=== PATIENT | male | born 1995 | race Caucasian/White ===

== ENCOUNTER 2019-07-16 14:42 | Emergency (ER) | payer OTHER ==
[2019-07-16] MEDS ORDERED: HYDROcodone 5MG/APAP 325MG 1 EA TAB PO ONE (14:55)
[2019-07-16] MEDS ORDERED: IBUPROFEN 200 MG TAB PO ONE (14:55)
--- NOTE | 2019-07-16 14:59 | ED.PDOC ---
History of Present Illness - General Chief Complaint: Upper Extremity Injury Stated Complaint: R arm injury Time Seen by Provider: 07/16/19 14:50 - History of Present Illness Initial Comments: 24 y.o. M w/ no sig pmh presents c/o R arm pain. Says he was playing softball when he attempted to throw the ball when he felt and heard a loud snap. C/o pain around his mid humerus. Pain is made worse with arm flexion. Denies any numbness or weakness of his hand. no other injury. Allergies/Adverse Reactions: Allergies NO KNOWN ALLERGY Allergy (Verified 07/16/19 14:52) Home Medications: Ambulatory Orders Hydrocodone-Acetaminophen [[place] 5-325 mg] 1 tab PO Q6HR PRN #15 tab 07/16/19 Ibuprofen 600 mg PO Q6HR PRN #20 tab 07/16/19 Review of Systems - Review of Systems Constitutional: States: no symptoms reported EENTM: States: no symptoms reported Respiratory: States: no symptoms reported Cardiology: States: no symptoms reported Gastrointestinal/Abdominal: States: no symptoms reported Genitourinary: States: no symptoms reported Musculoskeletal: States: joint pain, muscle pain Skin: States: no symptoms reported Neurological: States: no symptoms reported Endocrine: States: no symptoms reported Hematologic/Lymphatic: States: no symptoms reported All other Systems: Reviewed and Negative Family Medical History - Family History Father Family History: No Known Living Status: Still Living Physical Exam - Physical Exam General Appearance: Alert, Comfortable Eyes, Ears, Nose, Throat Exam: normal ENT inspection, pharynx normal Neck: non-tender, full range of motion Cardiovascular/Respiratory: regular rate, rhythm, no M/R/G Abdominal Exam: non-tender Back Exam: normal inspection Shoulder Exam: normal inspection, normal ROM - tenderness and swelling of mid humerus with tenderness of bicep. Neuro/Tendon: normal sensation, other - 2+ radial pulses Mental Status: alert, oriented x 3 Skin Exam: normal color, warm/dry Progress - Progress Progress: 07/16/19 15:06 MDM patient presenting with R upper arm pain after throwing softball. ? bicep tear. Plan: XR, treat pain, reassess. Diff dx: fracture, sprain/strain 07/16/19 16:[address] Lundberg, ortho, regarding XR. He reviewed films and recommended coa ptation splint, and will have patient f/u in his office on Thursday. 07/16/19 16:36 Patient reports he is going to [place] tomorrow, as he is a student at [employer]. He says his family in the area will find an orthopedic surgeon for him to f/u with. - EKG/XRAY/CT Xray Comments: XR of humerus with comminuted and displaced humerus fx Procedures - Splinting Right Arm Hand-Made Type: orthoglass Splint: Coaptation Pre-Proc Neuro Vasc Exam: normal Post-Proc Neuro Vasc Exam: normal Departure - Departure Clinical Impression: Comminuted fracture of humerus Qualifiers: Encounter type: initial encounter Humerus Location: shaft Fracture type: closed Fracture alignment: displaced Laterality: right Qualified Code(s): S42.351A - Displaced comminuted fracture of shaft of humerus, right arm, initial encounter for closed fracture Disposition: Discharge to Home or Self Care Condition: Good Departure Forms: ED Discharge - Pt. Copy, Patient Portal Self Enrollment Instructions: DI for Humeral Fracture Activity: no pushing/pulling with affected limb Referrals: Fawad Lundberg MD [Active Staff] - 1-2 Weeks Prescriptions: Hydrocodone-Acetaminophen [[place] 5-325 mg] 1 tab PO Q6HR PRN #15 tab PRN Reason: Pain -- Moderate To Severe Ibuprofen 600 mg PO Q6HR PRN #20 tab PRN Reason: Pain -- Moderate Home Medications: Ambulatory Orders Hydrocodone-Acetaminophen [[place] 5-325 mg] 1 tab PO Q6HR PRN #15 tab 07/16/19 Ibuprofen 600 mg PO Q6HR PRN #20 tab 07/16/19
[2019-07-16] MEDS ORDERED: fentaNYL CITRATE INJ 50 MCG/ML AMP IM ONE (16:00)
--- NOTE | 2019-07-16 16:08 | RAD ---
EXAM: Shoulder,Right 2 or More Views (accession [id number]), Humerus,Right (accession [id number]) CLINICAL INDICATION: Right shoulder pain, right arm pain COMPARISON: There is no previous study for comparison. FINDINGS: Three views of the right shoulder and 2 views of the right humerus reveal a comminuted fracture of the distal humeral diaphysis with 9 mm displacement of major fracture fragments. No other fracture or dislocation is identified. The glenohumeral and AC joints appear normal. IMPRESSION: Fracture of the distal right humerus. Electronically signed by: Carter Segundo MD 07/16/2019 4:06 PM CDT
--- NOTE | 2019-07-16 16:08 | RAD ---
EXAM: Shoulder,Right 2 or More Views (accession [id number]), Humerus,Right (accession [id number]) CLINICAL INDICATION: Right shoulder pain, right arm pain COMPARISON: There is no previous study for comparison. FINDINGS: Three views of the right shoulder and 2 views of the right humerus reveal a comminuted fracture of the distal humeral diaphysis with 9 mm displacement of major fracture fragments. No other fracture or dislocation is identified. The glenohumeral and AC joints appear normal. IMPRESSION: Fracture of the distal right humerus. Electronically signed by: Carter Segundo MD 07/16/2019 4:06 PM CDT
[2019-07-16 16:47] VITALS: BP 151/84; O2SAT 97
[2019-07-16 16:48] VITALS: TEMP 96.9
== END 2019-07-16 16:50 | disposition home or self-care (01) ==
LOC: ER 14:42
DX: S42.351A Displaced comminuted fracture of shaft of humerus, right arm, initial encounter for closed fracture (principal); X50.9XXA Other and unspecified overexertion or strenuous movements or postures, initial encounter; Y93.64 Activity, baseball; Y92.9 Unspecified place or not applicable
CPT/HCPCS: 73030; 73060; J3010